=== PATIENT | male | born 1965 | race Caucasian/White ===

== ENCOUNTER 2024-03-14 00:10 | Emergency (ER) | payer BC ==
[2024-03-14 01:08] LABS: BASOPHILS PERCENT AUTO 0.5 % (0.0-1.0); EOSINOPHILS ABSOLUTE AUTO 0.1 K/mm3 (0.0-0.4); EOSINOPHILS PERCENT AUTO 1.8 % (0.0-6.0); HEMOGLOBIN 14.4 gm/dl (14.0-18.0); IMMATURE GRAN ABSOLUTE AUTO 0.03 K/mm3 (0.00-0.05); IMMATURE GRAN PERCENT AUTO 0.4 % (0.0-0.4); LYMPHOCYTES ABSOLUTE AUTO 2.2 K/mm3 (1.0-4.8); LYMPHOCYTES PERCENT AUTO 28.2 % (24.0-44.0); MEAN CORPUSCULAR HEMOGLOBIN 27.9 pg (28.0-32.0); MEAN CORPUSCULAR HGB CONC 32.7 g/dl (32.0-36.0); MEAN CORPUSCULAR VOLUME 85.3 fl (83.0-99.0); MEAN PLATELET VOLUME 10.3 fl (9.4-12.4); MONOCYTES ABSOLUTE AUTO 0.5 K/mm3 (0.0-0.8); MONOCYTES PERCENT AUTO 6.8 % (0.0-8.0); NEUTROPHILS PERCENT AUTO 62.3 % (41.0-71.0); PLATELET COUNT,PLT 147 K/mm3 (150-400); RED BLOOD CELL COUNT 5.16 M/mm3 (4.52-5.90); WHITE BLOOD CELL COUNT,WBC 7.94 K/mm3 (3.9-11.3)
[2024-03-14] MEDS: Iopamidol 755 Mg/ML 100 ML Bottle IVPUSH ONE (01:12)
[2024-03-14] MEDS: Sodium Chloride 0.9% 10 ML Syringe FLUSH ONE (01:12)
[2024-03-14] MEDS: Sodium Chloride 0.9% 100 ML IV SCH (01:13)
[2024-03-14 01:33] LABS: APPEARANCE,URINE CLEAR (Clear); BILIRUBIN,URINE NEGATIVE (Negative); COLOR,URINE YELLOW (Yellow); GLUCOSE,URINE 2+ (Negative); KETONES,URINE NEGATIVE (Negative); LEUKOCYTE ESTERASE,URINE NEGATIVE (Negative); NITRITE,URINE NEGATIVE (Negative); OCCULT BLOOD,URINE NEGATIVE (Negative); PH,URINE 5.5 (5.0-8.0); PROTEIN,URINE 2+ (Negative); UROBILINOGEN,URINE 0.2 (0.2-1.0)
[2024-03-14 01:39] LABS: ALBUMIN 3.9 g/dl (3.4-5.0); ANION GAP 11.1 (5-15); BILIRUBIN TOTAL 0.4 mg/dL (0.2-1.0); BUN/CREATININE RATIO 8.2 (14-18); CALCIUM 9.3 mg/dL (8.5-10.1); CREATININE 1.1 mg/dL (0.7-1.3); EST CRCL DRUG DOSING (CG) 69.95 mL/min; POTASSIUM,K 4.1 mEq/L (3.5-5.1); TSH 4.513 uIU/mL (0.358-3.74)
[2024-03-14 01:44] LABS: CORONAVIRUS COVID-19 NAA NEGATIVE (NEGATIVE); INFLUENZA A NAA NEGATIVE (NEGATIVE); RESPIRATORY SYNCYTIAL VIR NAA NEGATIVE (NEGATIVE)
[2024-03-14 01:57] LABS: RBC,URINE 0-5 /hpf (0-5); WBC,URINE 0-5 /hpf (0-5)
[2024-03-14 01:58] LABS: BACTERIA,URINE RARE /hpf (FEW); EPITHELIAL CELLS,URINE NOT SEEN /hpf (0-5); HYALINE CASTS,URINE 0-5 /lpf (0-5); MUCUS,URINE NOT SEEN /hpf (FEW)
[2024-03-14] MEDS: Aspirin 81 MG Tab.Chew PO ONE (02:13)
[2024-03-14] MEDS: Heparin Sodium 5,000 Units/ML Vial IVPUSH ONE (02:14)
[2024-03-14] MEDS: Heparin Sodium/D5W 25,000 UNITS/500 ML BAG IV SCH ×2 (02:15→02:42)
[2024-03-14 02:17] LABS: INR 1.04
[2024-03-14 02:19] LABS: PTT,PARTIAL THROMBOPLSTIN TIME 27.3 SECONDS (21.7-31.4)
[2024-03-14] MEDS: Furosemide 40 MG/4 ML VIAL IVPUSH ONE (02:41)
== END 2024-03-14 03:40 ==
LOC: JD.ED 00:10
DX: J96.01 Acute respiratory failure with hypoxia (principal); J81.0 Acute pulmonary edema; I21.4 Non-ST elevation (NSTEMI) myocardial infarction; E11.9 Type 2 diabetes mellitus without complications; E78.00 Pure hypercholesterolemia, unspecified; Z87.891 Personal history of nicotine dependence; Z79.84 Long term (current) use of oral hypoglycemic drugs; Z79.899 Other long term (current) drug therapy
CPT/HCPCS: 0241U; 36415; 71275; 80053; 81001; 83735; 83880; 84145; 84443; 84484; 85025; 85610; 85730; 93005; 96365; 96366; 96375; 99285; A9270; J1644; J1940; J3490; Q9967; 93010